=== PATIENT | male | born 1950 | race Caucasian/White ===

== ENCOUNTER 2019-03-14 10:35 | Inpatient (IN) | payer OTHER, MEDICAID ==
[~2019-03-14] VITALS: Ht 167.6 cm; Wt 75.7 kg
--- NOTE | 2019-03-14 10:50 | NUR ---
PT TAKEN TO BED 10.
--- NOTE | 2019-03-14 11:20 | NUR ---
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 Respirations are even, and mildly labored. Respirations at 36. O2 saturation at 96% on RA. Breath sounds are bilateral coarse. Per alissa pt was admitted to [place] x3 weeks for aspiration pneumonia. D/Cd 02/21/19. On Monday night pt had emesis episode on Monday when difficulty breathing seemed to worsen. ERMD made aware of pt status. Allergies: Salicylates, NsSAIDS, Sulfa, Aspirin, Morphine Med hx: cholecystitis, cholescystectomy, osteoporosis, osteoarthritis, spatic quad, bladder retention, and depression.
[2019-03-14 11:44] VITALS: BP 134/67
[2019-03-14] MEDS ORDERED: MEROPENEM 1,000 MG in NACL 0.9% 100 ML IV ONE (12:05)
[2019-03-14] MEDS ORDERED: NACL 0.9% 2,000 ML IV ONE (12:05)
[2019-03-14] MEDS ORDERED: VANCOMYCIN 1,000 MG in DEXTROSE 5% 250 ML IV ONE (12:05)
--- NOTE | 2019-03-14 12:12 | NUR ---
measurement and sensing technician at bedside.
--- NOTE | 2019-03-14 12:50 | NUR ---
Pt awake and alert. Pt placed on 3L of O2, per MD request.
[2019-03-14] MEDS ORDERED: VANCOMYCIN 1,000 MG VIAL ONE (12:51)
[2019-03-14] MEDS ORDERED: MEROPENEM 1,000 MG VIAL IV ONE (12:52)
[2019-03-14 13:17] LABS: BASOPHILS % (AUTO) 0.3 % (0.0-2.0); EOSINOPHILS % (AUTO) 0.4 % (0.0-4.0); HEMATOCRIT 39.6 % (36-52); HEMOGLOBIN 13.1 g/dL (12.0-18.0); LYMPHOCYTES # (AUTO) 0.9 K/uL (2.0-11.5); LYMPHOCYTES % (AUTO) 11.8 % (20.5-51.1); MEAN CORPUSCULAR HEMOGLOBIN 32 pg (27-31); MEAN CORPUSCULAR HGB CONC 33 g/dL (33-37); MEAN CORPUSCULAR VOLUME 96.1 fL (80-94); MONOCYTES # (AUTO) 0.8 K/uL (0.8-1.0); MONOCYTES % (AUTO) 10.1 % (1.7-9.3); NEUTROPHILS # (AUTO) 6.1 K/uL (1.8-7.7); NEUTROPHILS % (AUTO) 77.4 % (42.2-75.2); PLATELET COUNT (AUTO) 240 K/uL (140-450); RED BLOOD CELL COUNT(AUTO) 4.12 MIL/uL (4.20-6.10); WHITE BLOOD COUNT (AUTO) 7.9 K/uL (4.8-10.8)
[2019-03-14 13:28] LABS: ANION GAP 11.4 (8-16); CARBON DIOXIDE 33.1 mmol/L (21-32); CREATININE 0.6 mg/dL (0.7-1.3); POTASSIUM 4.5 mmol/L (3.5-5.1)
[2019-03-14 13:33] LABS: ALBUMIN 2.1 g/dL (3.4-5.0); TOTAL BILIRUBIN 0.4 mg/dL (0.0-1.0)
[2019-03-14] MEDS ORDERED: LACT10SO93 PO (13:51)
[2019-03-14] MEDS ORDERED: TRAM50TA1 GT (13:51)
[2019-03-14] MEDS ORDERED: [UNRECOGNIZED DRUG - CODE] GT (13:51)
[2019-03-14] MEDS ORDERED: HAL5 GT (13:51)
[2019-03-14] MEDS ORDERED: ACET-503 GT (13:51)
[2019-03-14] MEDS ORDERED: BENZ-203 GT (13:51)
[2019-03-14] MEDS ORDERED: MIRABULK GT (13:51)
[2019-03-14] MEDS ORDERED: BISA-246 RC (13:51)
[2019-03-14] MEDS ORDERED: PRON INH (13:51)
[2019-03-14] MEDS ORDERED: DEXT118S47 GT (13:51)
[2019-03-14] MEDS ORDERED: NA P133E RC (13:51)
[2019-03-14] MEDS ORDERED: MULT9LIQ5 GT (13:51)
[2019-03-14] MEDS ORDERED: TAMS0.4C96 GT (13:51)
[2019-03-14] MEDS ORDERED: ASCO500T45 GT (13:51)
[2019-03-14] MEDS ORDERED: FAMO-90 GT (13:51)
--- NOTE | 2019-03-14 13:57 | NUR ---
[facility] in [facility] - 03/14/19 at 1358 by MONET CONTACT INFORMATION: MELE DANG)
--- NOTE | 2019-03-14 13:58 | NUR ---
CONTACT INFORMATION: MELE (RN) YINA (MEDIA PRODUCTION SUPPORT MANAGER)
[2019-03-14 14:00] VITALS: BP 120/66
--- NOTE | 2019-03-14 14:00 | NUR ---
UNABLE TO GIVE IV MEDS DUE TO IV INFILTRATION. NOTIFIED CHARGE NURSE.
--- NOTE | 2019-03-14 14:00 | NUR ---
PT CAME TO UNIT VIA [facility]. REPORT GIVEN BY ER NURSE LAXMI. PT WAS TRANSFEREE FROM [facility] TO BED. ADMISSION ASSESSMENT DONE. NOTED WITH OLD WHITE SKIN DISCOLORATION TO SACRAL AREA. SKIN INTACT. PICTURE TAKEN. CALL LIGHT IN REACH.
--- NOTE | 2019-03-14 14:11 | NUR ---
Transfer of care and report given to KATHY Michael. Transfer to 124B, Tele
--- NOTE | 2019-03-14 14:13 | NUR ---
Patient will be Admited to Tele. Will go to room 124b. Belongings list completed. Report to KATHY Michael.
[2019-03-14] MEDS ORDERED: ACETAMINOPHEN 325 MG TAB PO PRN (14:30)
[2019-03-14] MEDS ORDERED: ACETAMINOPHEN/CODEINE 300/30MG 1 TAB GT PRN (14:30)
[2019-03-14] MEDS ORDERED: ALBUTEROL 0.083% 2.5 MG/3 ML NEBU INH PRN (14:30)
[2019-03-14] MEDS ORDERED: SODIUM PHOSPHATE 118 ML ENEM RC PRN (14:30)
[2019-03-14] MEDS ORDERED: BISACODYL 10 MG SUPP RC PRN (14:30)
[2019-03-14] MEDS ORDERED: ONDANSETRON 4 MG/2 ML VIAL IVP PRN (14:30)
--- NOTE | 2019-03-14 14:30 | NUR ---
PT'S IV LINE IS INFILTRATED UNABLE YO GIVE IV MEDS. INFORMED CHARGE NURSE. CALLED DR DEJESUS TO GET A CONSENT FOR PICC LINE. PT IS RESTING BED. PT WAS GRIMACING. UNABLE TO GIVE PAIN MEDS DUE TO G TUBE PORT COMPATIBILTIY. CALLED [facility] TO GET THE ADAPTER. CALL LIGHT IN REACH.
[2019-03-14] MEDS: HYDROcodone/APAP 5/325 MG 1 TAB TAB PO PRN ×2 (15:59→20:24)
[2019-03-14 16:00] VITALS: BP 146/91
--- NOTE | 2019-03-14 19:00 | NUR ---
CALLED DR LEVY DEJESUS TO GET A CONSENT FOR PICC INSERTION. DR DEJESUS GAVE CONSENT. PER DR OLEG HERRERA WILL SIGN THE CONSENT AND DR DEJESUS WILL ALSO SIGN THE CONSENT. PT IS UNABLE TO SIGN PAPERS.CONSENT PRINTED AND IN CHART.
--- NOTE | 2019-03-14 19:30 | NUR ---
SHIFT REPORT GIVEN TO MECHANICAL DEVELOPER PROVER NURSE. IV LINE WAS REMOVED BECAUSE IV LINE WAS INFILTRATED. PICC CONSENT GIVEN BY DR DEJESUS. ENDORSED TO MECHANICAL DEVELOPER PROVER NURSE. PT IS IN STABLE CONDITION. NO DISTRESS NOTED. CALL LIGHT IN REACH.
--- NOTE | 2019-03-14 19:31 | NUR ---
RECEIVED BEDSIDE REPORT FROM DAY SHIFT NURSE FOR CONTINUITY OF CARE. PT AWAKE AND RESTING ON BED AT THIS TIME. PT AAOX1 RESPIRATION EVEN AND UNLABORED ON 3LPM O2 VIA NC. NO SIGNS OF DISTRESS NOTED. NO IV SITE NOTED. PICC LINE ORDERED D/T HARD TO START IV. SKIN WARM AND DRY TO TOUCH. REDNESS ON SACRAL AREA. PT BED BOUND. IMPAIR TO AMBULATE. PT IS INCONTINENT. G-TUBE SITE NOTED BUT NO DIET NOTED, WILL CALL . SAFETY MEASURES IN PLACE. BED IN LOW POSITION AND CALL LIGHT WITHIN REACH.
[2019-03-14 20:00] VITALS: BP 141/86
[2019-03-14] MEDS: BENZTROPINE 1 MG TAB GT SCH (20:24)
[2019-03-14] MEDS: HALOPERIDOL 5 MG TAB GT SCH (20:24)
--- NOTE | 2019-03-14 20:24 | NUR ---
GIVEN COGENTIN AND HALDOL MD ORDERED. NOT ADMINISTER MERREM D/T NO IV ASSESS. ATTEMPTED 2 TIMES OF IV START, NOT SUCCESSFUL.
[2019-03-14] MEDS: MEROPENEM 1,000 MG in NACL 0.9% 100 ML IV SCH (21:00)
--- NOTE | 2019-03-14 21:00 | NUR ---
CALLED DR. DEJESUS AND RECEIVED TUBE FEEDING ORDER, JEVITY 1.2 @ 50MLS, BUT PT'S GTUBE LINE DOES NOT FIT TO MH GTUBE FEEDING TUBE. CALLED [facility] FOR ADAPTOR 2TIMES, NO ANSWERING. ACCORDING TO CHARGE NURSE, ERNESTINA, THEY WILL BRING IT TO THE FACILITY IN THE MORNING AND WE SHOULD CALL WHEN THEY OPEN.
--- NOTE | 2019-03-14 22:22 | NUR ---
DR. HERRERA CAME AND AWARE PT DOES NOT HAVE IV ASSESS. ORDERED INFLUENZA A AND B. COLLECTED AND SENT TO LAB.
[2019-03-15] VITALS: BP 121/81
[2019-03-15] MEDS: MEROPENEM 1,000 MG in NACL 0.9% 100 ML IV SCH ×3 (01:20→23:49)
--- NOTE | 2019-03-15 01:20 | NUR ---
IV STARTED BY DONTAE, ON L HAND, 24G, GOOD BLOOD RETURN NOTED. GIVEN 03/14/192099 SCHEDULED MERREM LATE. PT TOLERATED WELL.
[2019-03-15] MEDS: IPRATROPIUM 0.02% 0.5 MG/2.5 ML NEBU INH SCH ×4 (02:10→19:56)
[2019-03-15] MEDS: HYDROcodone/APAP 5/325 MG 1 TAB TAB PO PRN ×4 (03:02→22:15)
--- NOTE | 2019-03-15 03:02 | NUR ---
PT SCREAMING. FLACC 1 NOTED. GIVEN NORCO MD ORDERED. PT TOLERATED WELL.
[2019-03-15 04:00] VITALS: BP 113/68
--- NOTE | 2019-03-15 04:25 | NUR ---
PT SLEEPING IN BED COMFORTABLY. NO ACUTE DISTRESS NOTED.
--- NOTE | 2019-03-15 06:00 | NUR ---
CALLED [facility] FOR SUKHDEEPUBE ADAPTOR. NO ANSWER.
--- NOTE | 2019-03-15 06:05 | NUR ---
CALLED ALVARO, [facility] FOR edPULSEUBE ADAPTOR. NO ANSWER.
[2019-03-15 06:12] LABS: BASOPHILS % (AUTO) 0.3 % (0.0-2.0); EOSINOPHILS % (AUTO) 0.5 % (0.0-4.0); HEMATOCRIT 34.9 % (36-52); HEMOGLOBIN 11.4 g/dL (12.0-18.0); LYMPHOCYTES % (AUTO) 13.2 % (20.5-51.1); MEAN CORPUSCULAR HEMOGLOBIN 32 pg (27-31); MEAN CORPUSCULAR HGB CONC 33 g/dL (33-37); MEAN CORPUSCULAR VOLUME 96.6 fL (80-94); MONOCYTES # (AUTO) 0.7 K/uL (0.8-1.0); MONOCYTES % (AUTO) 10.1 % (1.7-9.3); NEUTROPHILS # (AUTO) 5.5 K/uL (1.8-7.7); NEUTROPHILS % (AUTO) 75.9 % (42.2-75.2); PLATELET COUNT (AUTO) 234 K/uL (140-450); RED BLOOD CELL COUNT(AUTO) 3.61 MIL/uL (4.20-6.10); RED CELL DISTRIBUTION WIDTH 14.2 % (11.6-13.7); WHITE BLOOD COUNT (AUTO) 7.2 K/uL (4.8-10.8)
[2019-03-15 06:20] LABS: ANION GAP 10.4 (8-16); CARBON DIOXIDE 32.6 mmol/L (21-32); CREATININE 0.6 mg/dL (0.7-1.3)
--- NOTE | 2019-03-15 06:46 | NUR ---
PT IN STABLE CONDITION, WILL ENDORSE PT TO DAY SHIFT NURSE.
--- NOTE | 2019-03-15 07:15 | NUR ---
RECEIVED THE REPORT AT BEDSIDE FROM PROGRAM DIRECTOR/MORNING SHOW HOST NURSE. PT IS AWAKE AND ORIENTED X 2. ON 3L O2 VIA NC. ON TELE MONITORING. PT HAS A GTUBE, INTACT. IV ON L HAND 24G, TKO. SIN INTACT. UNABLE TO GIVE FEEDING D/T THE ADAPTOR NOT AVAILABLE. BUE AND CELIA IS CONTRACTED. WILL CONTINUE TO MONITOR PT.
[2019-03-15 08:00] VITALS: BP 140/75
--- NOTE | 2019-03-15 08:44 | NUR ---
PATIENT HAS BEEN SCREENED AND CATEGORIZED HIGH NUTRITION RISK. PATIENT WILL BE SEEN WITHIN 1-2 DAYS OF ADMISSION. 03/15/19-03/16/[address]
[2019-03-15] MEDS ORDERED: VITAMIN D3 GT SCH (09:00)
[2019-03-15] MEDS ORDERED: MINERALS GT SCH (09:00)
[2019-03-15] MEDS ORDERED: LACTULOSE PO SCH (09:00)
[2019-03-15] MEDS ORDERED: FERROUS FUM GT SCH (09:00)
[2019-03-15] MEDS ORDERED: CALCIUM CARBONATE GT SCH (09:00)
[2019-03-15] MEDS ORDERED: MULTIVIT GT SCH (09:00)
[2019-03-15] MEDS: LACTULOSE 20 GM/30 ML UDC GT SCH (09:18)
[2019-03-15] MEDS: TAMSULOSIN 0.4 MG CAP GT SCH (09:18)
[2019-03-15] MEDS: OSELTAMIVIR PHOSPHATE 75 MG CAP PO SCH ×2 (09:19→22:15)
[2019-03-15] MEDS: FAMOTIDINE 20 MG TAB GT SCH (09:19)
[2019-03-15] MEDS: MULTIVITAMIN/MINERALS 1 TAB GT SCH (09:19)
[2019-03-15] MEDS: CALCIUM CARB/VIT-D 500 MG/200 IU 1 TAB GT SCH (09:19)
[2019-03-15] MEDS: HALOPERIDOL 5 MG TAB GT SCH ×2 (09:19→22:15)
[2019-03-15] MEDS: BENZTROPINE 1 MG TAB GT SCH ×2 (09:26→22:15)
[2019-03-15] MEDS: ASCORBIC ACID 500 MG/5 ML ORASYR GT SCH (09:26)
--- NOTE | 2019-03-15 09:50 | NUR ---
DR DEJESUS IS HERE. SIGNED THE PICC LINE CONSENT. ADMINISTERED ALL MORNING MEDS VIA [email or web address]. PT TOLERATED WELL. STILL UNABLE TO START ON FEEDING D/T NOT HAVING THE ADAPTOR. WILL CALL NURSE THIS MORNING AND ASK THEM TO BRING IN AN ADAPTER FOR THE FEEDING.
[2019-03-15 12:00] VITALS: BP 93/60
--- NOTE | 2019-03-15 13:07 | NUR ---
DC PLANNIN YRS OLD MALE PT WAS ADMITTED FROM [facility] WITH A DX OF PNEUMONIA . PT HAS A HX OF SEIZURE, CEREBRAL PALSY OSTEOARTHRITIS,DYSPHAGIA . CXR SHOWED PLEURAL EFFUSION AND PNA ,CT CHEST SHOWS PARTIALLY LOCULATED QUESTIONABLE FLUID INVOLVING LARGE PORTION OF RIGHT HEMITHORAX ,G-TUBE IN PLACE. SEEN BY DR JANG ORDERED BLOOD AND SPUTUM CULTURE PENDING , STARTED MEROPENEM VANCOMYCIN IV AND TAMIFLU . ABD ULTRASOUND PENDING, CONSULTED WITH DR DARCI JAMES FOR TRANSAMINITIS ,PULMO DR QUEZADA FOR PLEURAL EFFUSION AND DR PIERRE SURGEON FOR PLEURAL EFFUSION/ CHEST TUBE. DC PLAN TO GO TO [facility] WHEN STABLE. Addendum: 03/17/19 at 1636 by Rhea Arellano CHEST CT DONE TODAY SHOWED LARGE MULTILOCULATED RIGHT PLEURAL EFFUSION, SIMILAR TO PRIOR EXAMINATION. SURGICAL CONSULT, ID, PULMO AND GI CONSULTS IN PLACE. DC PLAN BACK TO [facility] ONCE STABLE. Addendum: 03/18/19 at 1506 by Natalya Pettit DC PLANNING: CONTINUE CURRENT ABX COVERAGE FOR NOW CONSIDER PLEURAL TAP TO EVALUATE POSSIBILITY OF EMPYEMA CT CHEST AND CXRAY REVIEWED BY DR GRIER RECOMMENDED IR GUIDED THORACENTESIS AND POSSIBLE CHEST TUBE PLACEMENT . DC PLAN TO GO BACK TO [facility] WHEN STABLE. CM TO FOLLOW Addendum: 03/19/19 at 1327 by Natalya Pettit CM DC PLANNING SEEN BY PULMO DR GRIER , HIGHLY CONCERNING FOR EMPYEMA PLAN FOR IR GUIDED CHEST TUBE PLACEMENT, CONTINUE ANTIBIOTICS PER ID . CHEST TUBE PLACEMENT SCHEDULED FOR TOMORROW. CM TO FOLLOW Addendum: 03/20/19 at 1333 by Natalya Pettit DC PLANNING S/P CHEST TUBE PLACEMENT ,AWAITING ADAPTER TO CONNECT CHEST TUBE TO DRAINAGE ,REPEAT CHEST X-RAY TOMORROW CONTINUE ABX PER ID. DC PLAN FOR SNF VS [facility] CM TO FOLLOW Addendum: 03/21/19 at 1433 by Natalya Pettit CM DC PLANNING CALLED KULDEEP LAKHANI WITH [employer] AND FAXED ALL THE PAPERWORK AND [facility] WILL COME TO EVALUATE PATIENT. CM TO FOLLOW
--- NOTE | 2019-03-15 14:20 | NUR ---
DR BEJARANO IS HERE TO CONSULT ON PT. WAITING ON [facility] US. REPORT NOT AVAILABLE YET.
--- NOTE | 2019-03-15 15:15 | NUR ---
SCREEN FOR LOW JIMENEZ SCALE AT RISK, CONTINUE TO FOLLOW PRESSURE ULCER PREVENTION INTERVENTIONS. -TURN AND REPOSITION PATIENT Q 2H -ASSESS AND MONITOR SKIN CONDITION DURING POSITION CHANGE -OFFLOAD BILATERAL HEELS BY PLACING PILLOWS UNDER CALVES AT ALL TIMES, UNLESS OTHERWISE CONTRAINDICATED -PRESSURE REDISTRIBUTION BY PLACING PILLOWS AND OFFLOADING SACRALCOCCYX -KEEP SKIN CLEAN AND DRY AT ALL TIMES.
--- NOTE | 2019-03-15 15:23 | NUR ---
BUCKLE STRAP DRUM OPERATOR assessment/discharge plan Name: Carlos Birch Home Relationship: employee benefits manager of [facility] Pre-Admission Living Arrangements: Lives with Other Other: [facility] ([facility]) Current Name/Tel: wheelchair Healthcare Decision Maker: Other Other: [facility] Tentative Discharge Plan Summary: Patient is a 68 year old male admitted for pneumonia. I called and spoke with employee benefits manager Carlos Birch of [facility], I obtained the following information from him. Patient does not have any family. Carlos stated he will call me back and provide me with case management specialist at [facility] contact information. Patient is not conserved. Patient's pcp is Abel Nickerson and follows up with patient once a month or as needed. Carlos will be the one arranging transportation for patient upon discharge. Size Maker and/or Glass Calibrator will follow up as needed. Signature: GINA Ritter Date: Mar 15, 2019
--- NOTE | 2019-03-15 15:41 | NUR ---
03/15/19 INITIAL ASSESSMENT COMPLETED PLEASE REFER TO NUTRITION ASSESSMENT UNDER CARE ACTIVITY FOR ESTIMATED NUTRITIONAL NEEDS. 1. CONTINUE JEVITY 1.2 @ 50ML/HR -THIS WILL PROVIDE 1200 ML OF VOLUME, 1440 KCALS, AND 66.6 GM OF PROTEIN WHICH MEETS >75% OF ESTIMATED NUTRIENT NEEDS 2. RECOMMEND FREE WATER FLUSH OF 100ML Q4H 3. RD TO FOLLOW-UP 2-3 DAYS, HIGH RISK FRANCHESKA JHA RD
[2019-03-15 16:00] VITALS: BP 109/76
--- NOTE | 2019-03-15 19:17 | NUR ---
GAVE REPORT TO THE INSULATION BOARD CALENDER OPERATOR NURSE. PT MAY HAVE HIS PICC LINE INSERTED TONIGHT. SHUT OFF THE FEEDING AFTER 3 HRS. TOTAL 150ML. CONSENT IN THE CHART. ALL ORDERS REVIEWED AND COMPLETED.
--- NOTE | 2019-03-15 19:18 | NUR ---
RECEIVED REPORT FROM AM SHIFT NURSE. PATIENT ALERT AND ORIENTED X1. NO APPARENT DISTRESS NOTED. VISIBLE CHEST RISE AND FALL NOTED. BED ON LOW POSITION. WITH PERIPHERAL IV ON LEFT HAND 24 GAUGE ON TKO. WILL CONTINUE TO MONITOR.
[2019-03-15 20:00] VITALS: BP 122/49
--- NOTE | 2019-03-15 21:15 | NUR ---
PATIENT AWAKE IN BED. NO APPARENT DISTRESS NOTED. BED ON LOW POSITION. BED ALARM ON. WILL CONTINUE TO MONITOR.
--- NOTE | 2019-03-15 21:45 | NUR ---
PICC LINE INSERTED BY PICC LINE NURSE ALEX. MEJIA FOR USE.
--- NOTE | 2019-03-15 23:10 | NUR ---
PATIENT ASLEEP IN BED. NO APPARENT DISTRESS NOTED. SAFETY ENSURED. WILL CONTINUE TO MONITOR.
[2019-03-16] VITALS: BP 128/72
--- NOTE | 2019-03-16 01:05 | NUR ---
PATIENT ASLEEP IN BED. NO APPARENT DISTRESS NOTED. VISIBLE CHEST RISE AND FALL NOTED. WILL CONTINUE TO MONITOR.
[2019-03-16] MEDS: IPRATROPIUM 0.02% 0.5 MG/2.5 ML NEBU INH SCH ×4 (01:16→19:54)
[2019-03-16] MEDS: HYDROcodone/APAP 5/325 MG 1 TAB TAB PO PRN ×3 (02:49→16:56)
--- NOTE | 2019-03-16 03:00 | NUR ---
PATIENT AWAKE IN BED. NO APPARENT DISTRESS NOTED. VISIBLE CHEST RISE AND FALL NOTED. WILL CONTINUE TO MONITOR.
[2019-03-16 04:00] VITALS: BP 122/65
--- NOTE | 2019-03-16 04:44 | NUR ---
PATIENT ASLEEP IN BED. NO APPARENT DISTRESS NOTED. VISIBLE CHEST RISE AND FALL NOTED. WILL CONTINUE TO MONITOR.
--- NOTE | 2019-03-16 06:22 | NUR ---
CHANGED PADS. TURNED AND REPOSITIONED PATIENT FOR COMFORT. NO APPARENT DISTRESS NOTED. WILL CONTINUE TO MONITOR.
--- NOTE | 2019-03-16 07:10 | NUR ---
ENDORSED TO AM SHIFT NURSE FOR CONTINUITY OF CARE.
--- NOTE | 2019-03-16 07:11 | NUR ---
RECEIVED REPORT FROM PRESS WORKER HELPER NURSE AT BEDSIDE FOR CONTINUITY OF CARE. PATIENT ALERT AND ORIENTED X1. NO APPARENT DISTRESS NOTED. ON 3L O2 VIA NC. IV ON LEFT HAND 24 SL AND MAKSIM DOUBLE LUMEN PICC LINE AT TKO. SAFETY AND SEIZURE PRECAUTIONS IN PLACE, CALL LIGHT WITHIN REACH, WILL CONTINUE TO MONITOR PATIENT. BED ON LOW POSITION.
[2019-03-16 07:54] LABS: ALBUMIN 2.1 g/dL (3.4-5.0); ANION GAP 7.5 (8-16); CARBON DIOXIDE 34.5 mmol/L (21-32); CREATININE 0.7 mg/dL (0.7-1.3); TOTAL BILIRUBIN 0.3 mg/dL (0.0-1.0)
[2019-03-16 08:00] VITALS: BP 110/50
[2019-03-16 08:08] LABS: BASOPHILS % (AUTO) 0.3 % (0.0-2.0); EOSINOPHILS # (AUTO) 0.2 K/uL (0-0.4); EOSINOPHILS % (AUTO) 2.3 % (0.0-4.0); HEMATOCRIT 38.9 % (36-52); HEMOGLOBIN 12.8 g/dL (12.0-18.0); LYMPHOCYTES # (AUTO) 0.9 K/uL (2.0-11.5); MEAN CORPUSCULAR HEMOGLOBIN 32 pg (27-31); MEAN CORPUSCULAR HGB CONC 33 g/dL (33-37); MEAN CORPUSCULAR VOLUME 96.8 fL (80-94); MONOCYTES # (AUTO) 0.6 K/uL (0.8-1.0); MONOCYTES % (AUTO) 7.8 % (1.7-9.3); NEUTROPHILS # (AUTO) 5.8 K/uL (1.8-7.7); NEUTROPHILS % (AUTO) 77.6 % (42.2-75.2); PLATELET COUNT (AUTO) 284 K/uL (140-450); RED BLOOD CELL COUNT(AUTO) 4.02 MIL/uL (4.20-6.10); RED CELL DISTRIBUTION WIDTH 13.8 % (11.6-13.7); WHITE BLOOD COUNT (AUTO) 7.4 K/uL (4.8-10.8)
[2019-03-16] MEDS ORDERED: CRUSHER, PILL MC ONE (08:57)
[2019-03-16] MEDS: TAMSULOSIN 0.4 MG CAP GT SCH (09:04)
[2019-03-16] MEDS: FAMOTIDINE 20 MG TAB GT SCH (09:04)
[2019-03-16] MEDS: POLYETHYLENE GLYCOL 17 GM/PKT GT SCH (09:04)
[2019-03-16] MEDS: ASCORBIC ACID 500 MG/5 ML ORASYR GT SCH (09:04)
[2019-03-16] MEDS: LACTULOSE 20 GM/30 ML UDC GT SCH (09:04)
[2019-03-16] MEDS: HALOPERIDOL 5 MG TAB GT SCH ×2 (09:04→20:37)
[2019-03-16] MEDS: MULTIVITAMIN/MINERALS 1 TAB GT SCH (09:05)
[2019-03-16] MEDS: OSELTAMIVIR PHOSPHATE 75 MG CAP PO SCH ×2 (09:05→20:37)
[2019-03-16] MEDS: BENZTROPINE 1 MG TAB GT SCH ×2 (09:05→20:37)
[2019-03-16] MEDS: CALCIUM CARB/VIT-D 500 MG/200 IU 1 TAB GT SCH (09:23)
[2019-03-16] MEDS: MEROPENEM 1,000 MG in NACL 0.9% 100 ML IV SCH ×2 (10:57→20:38)
[2019-03-16 12:00] VITALS: BP 99/51
--- NOTE | 2019-03-16 12:00 | NUR ---
NEW BAG OF TUBE FEEDING STARTED. PATIENT TOLERATING IT. GTUBE AUSCULTATED FOR PLACEMENT AND 0 ML OF RESIDUAL NOTED. WILL CONTINUE TO MONITOR PATIENT.
[2019-03-16 12:21] LABS: ALBUMIN 2.2 g/dL (3.4-5.0); BILIRUBIN,DIRECT 0.1 mg/dL (0.0-0.3); TOTAL BILIRUBIN 0.3 mg/dL (0.0-1.0)
[2019-03-16 16:00] VITALS: BP 115/60
--- NOTE | 2019-03-16 16:56 | NUR ---
PATIENT STILL MOANING IN PAIN. PATIENT VOIDED AND HAD BM. PATIENT CLEANED AND REPOSITIONED, STILL MOANING IN PAIN. PRN PAIN MEDICATION GIVEN. PATIENT TOLERATING IT. WILL CONTINUE TO MONITOR PATIENT.
[2019-03-16] MEDS: ALBUTEROL 0.083% 2.5 MG/3 ML NEBU INH PRN (17:41)
--- NOTE | 2019-03-16 17:41 | NUR ---
REPEAT SPUTUM CULTURE COLLECTED USING STERILE TECHNIQUE APPPLIED [place] LUBRICANT TO THE DISTAL END OF A 14FR SUCTION CATHETER INSERTED INTO RIGHT AND LEFT NASAL CAVITY COLLETCD LARGE THICK YELLOW SECRETIONS TOLERATED PROCEDURE WELL WITHOUT INCIDENT PRE-MID AND POST OXYGENATION PROVIDED HHN PRN THERAPY PROVIDE FOR THE PREVENTION OF BRONCHOSPASM AND INCREASED SOB
[2019-03-16] MEDS: traMADol 50 MG TAB GT PRN (18:18)
--- NOTE | 2019-03-16 18:18 | NUR ---
PATIENT STILL MOANING IN PAIN. PATIENT REPOSITIONED, STILL MOANING IN PAIN. PRN PAIN MEDICATION GIVEN. PATIENT TOLERATING IT. WILL CONTINUE TO MONITOR PATIENT.
--- NOTE | 2019-03-16 18:20 | NUR ---
DOCTOR URBANO IN TO SEE PATIENT. HE IS AGREABLE WITH US GUIDED THORACENTESIS FOR PATIENT TOMORROW. WILL ENDORSE.
--- NOTE | 2019-03-16 19:26 | NUR ---
REPORT GIVEN TO LEAD MINER NURSE AT BEDSIDE FOR CONTINUITY OF CARE. PATIENT STILL MOANING IN PAIN.
--- NOTE | 2019-03-16 19:28 | NUR ---
RECEIVED REPORT FROM AM SHIFT NURSE, WIN AT BEDSIDE FOR CONTINUITY OF CARE. PATIENT ALERT AND ORIENTED X1 PT MOANING. REPLACED THE 3L O2 VIA NC, REATTACHED JANEL FIXED IT. IV ON LEFT HAND 24 SL , WITH IV ON AND MAKSIM DOUBLE LUMEN PICC LINE AT TKO. SAFETY AND SEIZURE PRECAUTIONS IN PLACE, CALL LIGHT WITHIN REACH, WILL CONTINUE TO MONITOR PATIENT. BED ON LOW POSITION.
[2019-03-16 19:58] VITALS: BP 134/73
--- NOTE | 2019-03-16 20:00 | NUR ---
RECEIVED PT ON 2L NC WITH AN SP02 OF 94% AND COARSE BREATH SOUNDS. NO RESPIRATORY DISTRESS NOTED AT THIS TIME. HHN TX GIVEN ORDERED WITH NO ADVERSE REACTION. WILL CONTINUE TO MONITOR PT.
--- NOTE | 2019-03-16 23:55 | NUR ---
PATIENT TURNED AND CLEANED, PLACED PILLOWS TO OFFLOAD PRESSURE AREAS
[2019-03-17] VITALS: BP 126/63
[2019-03-17] MEDS: HYDROcodone/APAP 5/325 MG 1 TAB TAB PO PRN ×2 (01:12→21:09)
--- NOTE | 2019-03-17 01:12 | NUR ---
PT MOANING, WILL GIVE PT PAINMEDS FOR CONTINUITY OF CARE
[2019-03-17] MEDS: IPRATROPIUM 0.02% 0.5 MG/2.5 ML NEBU INH SCH ×4 (01:14→19:53)
--- NOTE | 2019-03-17 01:23 | NUR ---
PT CLEANED AND TURNED; OFFLOADING DONE
--- NOTE | 2019-03-17 02:12 | NUR ---
PAIN REASSESSMENT DONE; WILL CONTUNUE TO MONITOR
--- NOTE | 2019-03-17 02:56 | NUR ---
TURNED AND CLEANED PT AND OFFLOADED PRESSURE AREAS
--- NOTE | 2019-03-17 03:30 | NUR ---
ENDORSED FOR USD GUIDED CHEST/MEDIASTINUM. AND USD THORACENTESIS TODAY
[2019-03-17 04:00] VITALS: BP 98/53
[2019-03-17 05:50] LABS: BASOPHILS % (AUTO) 0.3 % (0.0-2.0); EOSINOPHILS # (AUTO) 0.4 K/uL (0-0.4); EOSINOPHILS % (AUTO) 4.7 % (0.0-4.0); HEMATOCRIT 32.8 % (36-52); HEMOGLOBIN 10.6 g/dL (12.0-18.0); LYMPHOCYTES # (AUTO) 0.9 K/uL (2.0-11.5); LYMPHOCYTES % (AUTO) 11.5 % (20.5-51.1); MEAN CORPUSCULAR HEMOGLOBIN 31 pg (27-31); MEAN CORPUSCULAR HGB CONC 32 g/dL (33-37); MEAN CORPUSCULAR VOLUME 96.9 fL (80-94); MONOCYTES # (AUTO) 0.7 K/uL (0.8-1.0); MONOCYTES % (AUTO) 8.8 % (1.7-9.3); NEUTROPHILS # (AUTO) 5.7 K/uL (1.8-7.7); NEUTROPHILS % (AUTO) 74.7 % (42.2-75.2); PLATELET COUNT (AUTO) 280 K/uL (140-450); RED BLOOD CELL COUNT(AUTO) 3.39 MIL/uL (4.20-6.10); RED CELL DISTRIBUTION WIDTH 14.5 % (11.6-13.7); WHITE BLOOD COUNT (AUTO) 7.7 K/uL (4.8-10.8)
[2019-03-17 06:01] LABS: ANION GAP 3.7 (8-16); CARBON DIOXIDE 35.5 mmol/L (21-32); CREATININE 0.6 mg/dL (0.7-1.3); POTASSIUM 4.2 mmol/L (3.5-5.1)
--- NOTE | 2019-03-17 06:30 | NUR ---
PT ASLEEP, CAN BE AROUSED BY TACTILE STIMULI. PT WAS AWAKE EARLIER. PT IN STABLE CONDITION. WILL ENDORSE TO NEXT SHIFT USD GUIDED THORACENTESIS TO BE DONE TODAY. PLS ORDER PLEURAL EFFUSION LIQUID SAMPLE (ASK DR. BECERRA WE NEEDS TO BE DONE FOR THE SAMPLE)
--- NOTE | 2019-03-17 07:15 | NUR ---
RECEIVED BEDSIDE REPORT FROM PM RN PT AWAKE IN BED PT APPEARS STABLE AND IN NO APPARENT DISTRESS. ALL SAFETY MEASURES ARE IN PLACE WILL CONTINUE TO MONITOR.
--- NOTE | 2019-03-17 07:24 | NUR ---
PT ASLEEP, PT ABLE TO BE AROUSED BY TACTILE STIMULI. WILL ENDORSE TO NEXT SHIFT FOR CONTINUITY OF CARE. Addendum: 03/18/19 at 0737 by Christy Zaman RN GISEL
--- NOTE | 2019-03-17 07:39 | NUR ---
CALLED THE RN ALVARO BUT HER MAILBOX IS FULL; ULTRASOUND GUIDED CONSENT ATTACHED TO CHART, AWAITING FOR DECISION OF MARYA.
[2019-03-17] MEDS: ALBUTEROL 0.083% 2.5 MG/3 ML NEBU INH PRN (07:51)
[2019-03-17 08:00] VITALS: BP 142/74
[2019-03-17] MEDS: ASCORBIC ACID 500 MG/5 ML ORASYR GT SCH (09:18)
[2019-03-17] MEDS: MEROPENEM 1,000 MG in NACL 0.9% 100 ML IV SCH ×2 (09:19→21:08)
[2019-03-17] MEDS: LACTULOSE 20 GM/30 ML UDC GT SCH (09:19)
[2019-03-17] MEDS: CALCIUM CARB/VIT-D 500 MG/200 IU 1 TAB GT SCH (09:19)
[2019-03-17] MEDS: HALOPERIDOL 5 MG TAB GT SCH ×2 (09:20→21:08)
[2019-03-17] MEDS: BENZTROPINE 1 MG TAB GT SCH ×2 (09:20→21:09)
[2019-03-17] MEDS: MULTIVITAMIN/MINERALS 1 TAB GT SCH (09:20)
[2019-03-17] MEDS: OSELTAMIVIR PHOSPHATE 75 MG CAP PO SCH ×2 (09:20→21:09)
[2019-03-17] MEDS: FAMOTIDINE 20 MG TAB GT SCH (09:20)
[2019-03-17] MEDS: TAMSULOSIN 0.4 MG CAP GT SCH (09:20)
--- NOTE | 2019-03-17 09:22 | NUR ---
FREQUENT ROUNDING ON PT PT APPEARS STABLE AND IN NO APPARENT DISTRESS. ALL SAFETY MEASURES ARE IN PLACE WILL CONTINUE TO MONITOR.
[2019-03-17] MEDS: LORazepam 2 MG/ML VIAL IVP PRN ×2 (11:02→21:56)
--- NOTE | 2019-03-17 11:05 | NUR ---
ATIVAN ADMINISTERED VIA IV PUSH PT APPEARS VERY AGITATED AND MOANING. PT ON TELE MONITORING. RIGHT UPPER ARM PICC INFUSING NO SIGNS OF INFILTRATION OR INFLAMMATION. PT RECEIVING 02 VIA NASAL CANULA AT 3L. GTUBE INFUSING HEAD OF BED ELEVATED ABOVE 30 DEGREES. ALL SAFETY MEASURES ARE IN PLACE
--- NOTE | 2019-03-17 11:34 | NUR ---
FREQUENT ROUNDING ON PT PT APPEARS STABLE AND IN NO APPARENT DISTRESS. ALL SAFETY MEASURES ARE IN PLACE WILL CONTINUE TO MONITOR.
[2019-03-17 12:05] VITALS: BP 112/57
--- NOTE | 2019-03-17 12:30 | NUR ---
PT TAKEN OFF THE UNIT VIA GURNEY. TO RADIOLOGY FOR CT SCAN. ALL SAFETY MEASURES ARE IN PLACE WILL CONTINUE TO MONITOR.
--- NOTE | 2019-03-17 12:54 | NUR ---
PT RETURNED BACK TO UNIT. PT AWAKE PT MONITORING ON . PT HEAD OF THE BED ELEVATE ABOVE 30 DEGREES SEIZURE PRECAUTIONS IN PLACE. ALL SAFETY MEASURES ARE IN PLACE PT IS ON 02 VIA NASAL CANULA 3L WILL CONTINUE TO MONITOR.
--- NOTE | 2019-03-17 13:46 | NUR ---
FREQUENT ROUNDING ON PT PT APPEARS STABLE AND IN NO APPARENT DISTRESS. ALL SAFETY MEASURES ARE IN PLACE WILL CONTINUE TO MONITOR. ALL SAFETY MEASURES ARE IN PLACE PT IS STILL ON TELE MONITORING
--- NOTE | 2019-03-17 15:34 | NUR ---
FREQUENT ROUNDING ON PT PT APPEARS STABLE AND IN NO APPARENT DISTRESS. ALL SAFETY MEASURES ARE IN PLACE WILL CONTINUE TO MONITOR
[2019-03-17 16:39] VITALS: BP 117/62
--- NOTE | 2019-03-17 19:23 | NUR ---
ENDORSED PT TO PM RN PT ON TELE MONITORING. PT HAS RIGHT UPPER ARM PICC IN PLACE PT HAS 02 VIA NASAL CANULA. ALL SAFETY MEASURES ARE IN PLACE GTUBE INFUSING HEAD OF BED ELEVATED ABOVE 30 DEGREES. SEIZURE PRECAUTIONS ARE IN PLACE/
--- NOTE | 2019-03-17 19:24 | NUR ---
RECEIVED REPORT FROM AM SHIFT NURSEDAVIDE AT BEDSIDE FOR CONTINUITY OF CARE. PATIENT ALERT AND ORIENTED X1 PT MOANING. WITH 3L O2 VIA NC, IV ON LEFT HAND 24 SL , WITH IV ON AND MAKSIM DOUBLE LUMEN PICC LINE AT TKO. SAFETY AND SEIZURE PRECAUTIONS IN PLACE, CALL LIGHT WITHIN REACH, WILL CONTINUE TO MONITOR PATIENT. BED ON LOW POSITION.
[2019-03-17 20:00] VITALS: BP 144/78
--- NOTE | 2019-03-17 20:08 | NUR ---
RECEIVED PATIENT ON NASAL CANNULA. TITRATED TO 2LPM, PULSE OX SAT 94%. SCHEDULED BREATHING TREATMENT ADMINISTERED. TOLERATED TX WELL WITHOUT ADVERSE SIDE EFFECTS. NO ACUTE RESPIRATORY DISTRESS NOTED AT THIS TIME. WILL CONTINUE TO MONITOR.
--- NOTE | 2019-03-17 21:53 | NUR ---
PT MOANING LOUDLY, AFTER GIVING PAIN MEDS, PT STILL HAS NOT STOPPED CRYING. CHARGE NURSE AWARE THAT WILL GIVE ATIVAN BP 144/78; HR 106
--- NOTE | 2019-03-17 22:00 | NUR ---
PATIENT TURNED AND CLEANED, PLACED PILLOWS TO OFFLOAD PRESSURE AREAS
[2019-03-18] VITALS: BP 133/70
[2019-03-18] MEDS: IPRATROPIUM 0.02% 0.5 MG/2.5 ML NEBU INH SCH ×4 (01:00→19:28)
--- NOTE | 2019-03-18 01:15 | NUR ---
PATIENT TURNED AND CLEANED, PLACED PILLOWS TO OFFLOAD PRESSURE AREAS
[2019-03-18 04:00] VITALS: BP 121/65
[2019-03-18] MEDS: traMADol 50 MG TAB GT PRN ×2 (04:39→20:46)
--- NOTE | 2019-03-18 06:00 | NUR ---
CHEST XRAY DONE
[2019-03-18 06:03] LABS: BASOPHILS % (AUTO) 0.3 % (0.0-2.0); EOSINOPHILS # (AUTO) 0.4 K/uL (0-0.4); EOSINOPHILS % (AUTO) 5.5 % (0.0-4.0); HEMATOCRIT 32.3 % (36-52); HEMOGLOBIN 10.6 g/dL (12.0-18.0); LYMPHOCYTES # (AUTO) 0.9 K/uL (2.0-11.5); LYMPHOCYTES % (AUTO) 12.3 % (20.5-51.1); MEAN CORPUSCULAR HEMOGLOBIN 32 pg (27-31); MEAN CORPUSCULAR HGB CONC 33 g/dL (33-37); MEAN CORPUSCULAR VOLUME 96.7 fL (80-94); MONOCYTES # (AUTO) 0.6 K/uL (0.8-1.0); MONOCYTES % (AUTO) 7.9 % (1.7-9.3); NEUTROPHILS # (AUTO) 5.4 K/uL (1.8-7.7); PLATELET COUNT (AUTO) 272 K/uL (140-450); RED BLOOD CELL COUNT(AUTO) 3.33 MIL/uL (4.20-6.10); RED CELL DISTRIBUTION WIDTH 13.9 % (11.6-13.7); WHITE BLOOD COUNT (AUTO) 7.2 K/uL (4.8-10.8)
[2019-03-18 06:46] LABS: ALBUMIN 1.7 g/dL (3.4-5.0); ANION GAP 4.1 (8-16); CARBON DIOXIDE 35.1 mmol/L (21-32); CREATININE 0.4 mg/dL (0.7-1.3); POTASSIUM 4.2 mmol/L (3.5-5.1); TOTAL BILIRUBIN 0.2 mg/dL (0.0-1.0)
--- NOTE | 2019-03-18 07:24 | NUR ---
RECEIVED REPORT FROM BATTERY CONTAINER INSPECTOR NURSE. PT IS IN BED RESTING WITH NO SIGNS OF DISTRESS NOTED. CALL LIGHT IN REACH.
--- NOTE | 2019-03-18 07:24 | NUR ---
PT ASLEEP, PT ABLE TO BE AROUSED BY TACTILE STIMULI. WILL ENDORSE TO NEXT SHIFT FOR CONTINUITY OF CARE.
[2019-03-18] MEDS: ALBUTEROL 0.083% 2.5 MG/3 ML NEBU INH PRN (07:32)
[2019-03-18 08:00] VITALS: BP 100/54
[2019-03-18] MEDS: HALOPERIDOL 5 MG TAB GT SCH ×2 (08:22→20:27)
[2019-03-18] MEDS: LACTULOSE 20 GM/30 ML UDC GT SCH (08:22)
[2019-03-18] MEDS: BENZTROPINE 1 MG TAB GT SCH ×2 (08:23→20:34)
[2019-03-18] MEDS: FAMOTIDINE 20 MG TAB GT SCH (08:23)
[2019-03-18] MEDS: MULTIVITAMIN/MINERALS 1 TAB GT SCH (08:23)
[2019-03-18] MEDS: CALCIUM CARB/VIT-D 500 MG/200 IU 1 TAB GT SCH (08:23)
[2019-03-18] MEDS: OSELTAMIVIR PHOSPHATE 75 MG CAP PO SCH ×2 (08:24→20:34)
[2019-03-18] MEDS: POLYETHYLENE GLYCOL 17 GM/PKT GT SCH (08:24)
[2019-03-18] MEDS: TAMSULOSIN 0.4 MG CAP GT SCH (08:29)
[2019-03-18] MEDS: MEROPENEM 1,000 MG in NACL 0.9% 100 ML IV SCH ×2 (08:29→20:35)
[2019-03-18] MEDS: ASCORBIC ACID 500 MG/5 ML ORASYR GT SCH (08:29)
--- NOTE | 2019-03-18 10:09 | NUR ---
PT IS NOTED WITH LOW BLOOD PRESSURE OF 91/55. PT IS OTHERWISE IS RESTING IN BED WITH NO SIGNS OF DISTRESS. OXYGEN SAT AT 96% HR AT 81. WILL CONTINUE TO MONITOR. G TUBE ASSESSMENT DONE. G TUBE RESIDUAL AT 5ML AT. CHECKED FOR PLACEMENT AND PATENCY. CALL LIGHT IN REACH.
[2019-03-18 12:00] VITALS: BP 120/66
--- NOTE | 2019-03-18 12:00 | NUR ---
PT'S BLOOD PRESSURE TAKEN ON LEFT CALF AT 120/66, O2 AT 99, HR 82. REPOSITIONED PATIENT. PT IS STILL LETHARGIC BUT RESPONSIVE TO VERBAL STIMULI. CALL LIGHT IN REACH.
--- NOTE | 2019-03-18 13:04 | NUR ---
03/18/19 RD FOLLOW UP COMPLETED PLEASE REFER TO NUTRITION ASSESSMENT UNDER CARE ACTIVITY FOR ESTIMATED NUTRITIONAL NEEDS. 1. CONTINUE JEVITY 1.2 @ 50ML/HR -THIS WILL PROVIDE 1200 ML OF VOLUME, 1440 KCALS, AND 66.6 GM OF PROTEIN WHICH MEETS >75% OF ESTIMATED NUTRIENT NEEDS 2. RECOMMEND FREE WATER FLUSH OF 100ML Q4H 3. RD TO FOLLOW-UP 2-3 DAYS, HIGH RISK FRANCHESKA JHA RD
[2019-03-18 16:00] VITALS: BP 127/66
[2019-03-18] MEDS: HYDROcodone/APAP 5/325 MG 1 TAB TAB PO PRN (16:12)
--- NOTE | 2019-03-18 16:26 | NUR ---
PT IS AWAKE AND IN LABORED BREATHING.FACIAL GRIMACING NOTED. PAIN MEDICATION GIVEN THROUGH G TUBE. CALL LIGHT IN REACH.
[2019-03-18] MEDS: LORazepam 2 MG/ML VIAL IVP PRN (18:36)
--- NOTE | 2019-03-18 18:36 | NUR ---
PT WAS MOANING. PT WAS GIVEN PAIN MEDICATION EARLIER. PT CONTINUES TO BE MOANING. ATIVAN GIVEN TO PATIENT. WILL ENDORSE TO MANAGER ETL NURSE TO MONITOR PT. CALL LIGHT IN REACH.
--- NOTE | 2019-03-18 19:38 | NUR ---
SHIFT REPORT GIVEN TO ROSS FURNACE OPERATOR NURSE. PT IS IN STABLE CONDITION. VITAL SIGNS IN NORMAL LIMITS. CALL LIGHT IN REACH.
--- NOTE | 2019-03-18 19:38 | NUR ---
RECIEVED PT AAOX1 , NID - O2 SAT -WNL , W/ PICC LINE ON R UPPER ARM , ON JEVITY 1.2 RUN 50CC W/ H20 FLUSH 100 Q4 HR. LOW JIMENEZ SCALE , SPASTIC - W/ HX OF CEREBRAL PALSY , W/ IV SITE ON L HAND INTACT AND PATENT . ON SAFETY PRECAUTION PROTOCOL - BED ALARM ON . POC DISCUSSED BUT POOR UNDERSTANDING DUE TO MENTAL STATUS , CALL LIGHT W/ IN REACH - WILL CONT. TO MONITOR.
[2019-03-18 20:00] VITALS: BP 140/79
--- NOTE | 2019-03-18 20:00 | NUR ---
RECEIVED PATIENT ON 2L NASAL CANNULA, PULSE OX SAT 97%. PATIENT PRESENTS WITH COARSE/RHONCHI BREATH SOUNDS AND AUDIBLE UPPER AIRWAY SECRETIONS. SCHEDULED BREATHING TREATMENT ADMINISTERED. TOLERATED TX WELL WITHOUT ADVERSE SIDE EFFECTS. NASOTRACHEALLY SUCTIONED PATIENT WITHOUT INCIDENT. SUCTIONED LARGE AMOUNT OF THICK, YELLOW SECRETIONS. SPUTUM SAMPLE OBTAINED AND SENT TO LAB. ORAL CARE DONE. NO ACUTE RESPIRATORY DISTRESS NOTED AT THIS TIME. WILL CONTINUE TO MONITOR.
--- NOTE | 2019-03-18 22:00 | NUR ---
MADE ROUNDS NO SIGNS OF ACUTE DISTRESS NOTED AT THIS TIME . O2 SAT WNL . WILL CONT. TO MONITOR.
[2019-03-19] VITALS (11 sets, daily range): BP systolic 110–155; BP diastolic 57–79
--- NOTE | 2019-03-19 | NUR ---
MADE ROUNDS , NO SIGNS OF ACUTE DISTRESS NOTED AT THIS TIME . ON GLASS BREAKER - WILL CONT. TO MONITOR.
[2019-03-19] MEDS: IPRATROPIUM 0.02% 0.5 MG/2.5 ML NEBU INH SCH ×4 (01:29→19:20)
--- NOTE | 2019-03-19 01:37 | NUR ---
SCHEDULED BREATHING TREATMENT ADMINISTERED. TOLERATED TX WELL WITHOUT ADVERSE SIDE EFFECTS. NO ACUTE RESPIRATORY DISTRESS NOTED AT THIS TIME. WILL CONTINUE TO MONITOR.
--- NOTE | 2019-03-19 02:00 | NUR ---
SLEEPING - O2 SAT WNL.
[2019-03-19] MEDS: HYDROcodone/APAP 5/325 MG 1 TAB TAB PO PRN ×2 (02:14→10:13)
--- NOTE | 2019-03-19 04:00 | NUR ---
MADE ROUNDS , NO SIGNS OF ACUTE DSITRESS NOTED AT THIS TIME - FULLY WET DIAPER - GOOD U.O V/S WNL.
--- NOTE | 2019-03-19 06:00 | NUR ---
RESTING IN BED , MOANING OCASSIONALLY - WILL CONT. TO MONITOR V/S WNL .
[2019-03-19 06:22] LABS: BASOPHILS % (AUTO) 0.4 % (0.0-2.0); EOSINOPHILS # (AUTO) 0.5 K/uL (0-0.4); EOSINOPHILS % (AUTO) 7.5 % (0.0-4.0); HEMATOCRIT 31.2 % (36-52); HEMOGLOBIN 10.3 g/dL (12.0-18.0); LYMPHOCYTES # (AUTO) 1.3 K/uL (2.0-11.5); LYMPHOCYTES % (AUTO) 18.6 % (20.5-51.1); MEAN CORPUSCULAR HEMOGLOBIN 32 pg (27-31); MEAN CORPUSCULAR HGB CONC 33 g/dL (33-37); MEAN CORPUSCULAR VOLUME 96.7 fL (80-94); MONOCYTES # (AUTO) 0.6 K/uL (0.8-1.0); MONOCYTES % (AUTO) 8.2 % (1.7-9.3); NEUTROPHILS # (AUTO) 4.5 K/uL (1.8-7.7); NEUTROPHILS % (AUTO) 65.3 % (42.2-75.2); PLATELET COUNT (AUTO) 298 K/uL (140-450); RED BLOOD CELL COUNT(AUTO) 3.23 MIL/uL (4.20-6.10); WHITE BLOOD COUNT (AUTO) 6.9 K/uL (4.8-10.8)
[2019-03-19 06:53] LABS: CREATININE 0.5 mg/dL (0.7-1.3)
[2019-03-19 06:57] LABS: ANION GAP 5.1 (8-16); CARBON DIOXIDE 36.3 mmol/L (21-32); POTASSIUM 4.4 mmol/L (3.5-5.1)
--- NOTE | 2019-03-19 07:35 | NUR ---
ENDORSED TO AM SHIFT FOR CONT. OF CARE . PT IS STABLE CONDITION.
--- NOTE | 2019-03-19 07:40 | NUR ---
REPORT RECEIVED FROM STUNT PERFORMER. PT AWAKE, NO S/S OF ACUTE DISTRESS NOTED, GT INFUSING PER ORDER, SAFETY PRECAUTIONS IN PLACE, PERSONAL ITEMS WITHIN EASY REACH. WILL CONTINUE TO MONITOR.
[2019-03-19] MEDS: LACTULOSE 20 GM/30 ML UDC GT SCH (10:12)
[2019-03-19] MEDS: MULTIVITAMIN/MINERALS 1 TAB GT SCH (10:12)
[2019-03-19] MEDS: FAMOTIDINE 20 MG TAB GT SCH (10:13)
[2019-03-19] MEDS: TAMSULOSIN 0.4 MG CAP GT SCH (10:13)
[2019-03-19] MEDS: BENZTROPINE 1 MG TAB GT SCH ×2 (10:13→20:26)
[2019-03-19] MEDS: OSELTAMIVIR PHOSPHATE 75 MG CAP PO SCH (10:13)
[2019-03-19] MEDS: HALOPERIDOL 5 MG TAB GT SCH ×2 (10:14→20:26)
[2019-03-19] MEDS: CALCIUM CARB/VIT-D 500 MG/200 IU 1 TAB GT SCH (10:14)
[2019-03-19] MEDS: MEROPENEM 1,000 MG in NACL 0.9% 100 ML IV SCH ×2 (10:17→20:26)
--- NOTE | 2019-03-19 10:30 | NUR ---
PT REMAINS AWAKE, ABLE TO COMMUNICATE SOME NEEDS, CAREGIVER AT BEDSIDE.NO S/S OF ACUTE DISTRESS NOTED, GT INFUSING PER ORDER, SAFETY PRECAUTIONS IN PLACE, PERSONAL ITEMS WITHIN EASY REACH. WILL CONTINUE TO MONITOR.
[2019-03-19] MEDS: ASCORBIC ACID 500 MG/5 ML ORASYR GT SCH (10:40)
[2019-03-19 10:50] LABS: PROTHROMBIN TIME 10.2 secs (10.8-13.4)
--- NOTE | 2019-03-19 11:00 | NUR ---
GT FEEDING PLACED ON HOLD PER RADIOLOGY IN PREPARATION FOR PROCEDURE.
--- NOTE | 2019-03-19 13:40 | NUR ---
Dr Song at bedside to perform us guided thoracentesis with chest tube placement.
--- NOTE | 2019-03-19 14:03 | NUR ---
PT HAVING STERILE PROCEDURE HHN NOT GIVEN
[2019-03-19] MEDS: LORazepam 2 MG/ML VIAL IVP PRN (14:05)
--- NOTE | 2019-03-19 14:05 | NUR ---
PT APPEARS ANXIOUS ADMINISTERED PRN MEDICATION PER ORDER. SAFETY PRECAUTIONS REMAIN IN PLACE, NURSING AT BEDSIDE PREPARING PT FOR PROCEDURE.
[2019-03-19] MEDS ORDERED: LIDOCAINE 1% 500 MG/50 ML VIAL INJ SCH (14:35)
--- NOTE | 2019-03-19 15:15 | NUR ---
BEDSIDE PROCEDURE COMPLETE, PT SLEEPING APPEARS COMFORTABLE. XRAY CALLED TO COMPLETE CXR. NO S/S OF ACUTE DISTRESS NOTED, SAFETY PRECAUTIONS IN PLACE, PERSONAL ITEMS WITHIN EASY REACH. WILL CONTINUE TO MONITOR.
--- NOTE | 2019-03-19 15:45 | NUR ---
Dr Song completed us guided ct placement and thoracentesis at bedside 1175 ml nilesh liquid withdrawn and delivered to lab. Pleurvac not on unit, notified charge nurse, called ICU and housecleaner floor; equipment will be available tomorrow, charge nurse updated.
--- NOTE | 2019-03-19 16:30 | NUR ---
Dr Cole notified of chest tube placement and suction equiptment unavailable until tomorrow; per thats ok, no new orders, discussed Merrem per pharmary and received order.
--- NOTE | 2019-03-19 18:00 | NUR ---
PT RESTING QUIETLY, TV ON, APPEARS COMFORTABLE. NO S/S OF ACUTE DISTRESS NOTED, SAFETY PRECAUTIONS IN PLACE, PERSONAL ITEMS WITHIN EASY REACH. WILL CONTINUE TO MONITOR.
--- NOTE | 2019-03-19 19:20 | NUR ---
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 LUNG SOUND ALTHOUGH DIMINISHED IN SOME AREAS BUT THE CHEST RISE AND FALL EQUALLY AND O2 SAT IS CONT. ON WNL - ON O2 SAT MONITORING . POC DISCUSSED BUT POOR UNDERSTANDING DUE TO MENTAL STATUS - W/ HX OF CEREBRAL PALSY - ON BED BOUND -SPASTIC QUADRIPLEGIC -ON SAFETY / FALL PRECAUTION PROTOCOL - BED ALARM ON , ON JEVITY 1.2 CONT. FEEDING - SOFT ABD. , INCONTINENT , WITH OLD SCAR OF LEFT BUTT - W/ OPTIFOAM - LOW JIMENEZ SCALE . WILL CONT TO MONITOR.
--- NOTE | 2019-03-19 19:20 | NUR ---
REPORT ENDORSED TO NIGHT NURSE ELMIRA, PT SLEEPING APPEARS COMFORTABLE. NO S/S OF ACUTE DISTRESS NOTED, SAFETY PRECAUTIONS IN PLACE.
--- NOTE | 2019-03-19 19:20 | NUR ---
ENDORSED TO NIGHT NURSE TO FOLLOW UP WITH RT FOR EARLY AM SPUTUM COLLECTION AND TO FOLLOW UP WITH DAY SHIFT TO OBTAIN SUCTION EQUIPMENT FOR CHEST TUBE; AGREEABLE.
--- NOTE | 2019-03-19 19:33 | NUR ---
RECEIVED PATIENT ON 2L NASAL CANNULA, PULSE OX SAT 95%. SCHEDULED BREATHING TREATMENT ADMINISTERED. TOLERATED TX WELL WITHOUT ADVERSE SIDE EFFECTS. NO ACUTE RESPIRATORY DISTRESS NOTED AT THIS TIME. WILL CONTINUE TO MONITOR.
[2019-03-19] MEDS: traMADol 50 MG TAB GT PRN (20:46)
--- NOTE | 2019-03-19 22:00 | NUR ---
MADE ROUNDS -NO SIGNS OF ACUTE DISTRESS NOTED AT THIS TIME . O2 SAT WNL. WILL CONT. TO MONITOR.
[2019-03-19 22:01] LABS: APPEARANCE,SPUN,BODY FLUID CLEAR (CLEAR); APPEARANCE,UNSPUN,BODY FLUID HAZY (CLEAR); COLOR,BODY FLUID YELLOW (LT YELLOW); GLUCOSE,BODY FLUID 88 mg/dL; SPECIMENTYPE,BODY FLUID PLEURAL; TOTAL VOLUME,BODY FLUID 1300 mL
[2019-03-19 22:16] LABS: RBC, BODY FLUID 3105 /cu. mm.; WBC, BODY FLUID 0 /cu. mm.
[2019-03-20] VITALS: BP 116/63
--- NOTE | 2019-03-20 | NUR ---
MADE ROUNDS - SLEEPING CHEST RISE AND FALL EQUALLY. WILL CONT. TO MONITOR.
[2019-03-20] MEDS: IPRATROPIUM 0.02% 0.5 MG/2.5 ML NEBU INH SCH ×4 (01:30→18:37)
--- NOTE | 2019-03-20 01:30 | NUR ---
PATIENT SLEEPING COMFORTABLY AT THIS TIME. BREATHING TREATMENT NOT GIVEN. RN MADE AWARE. NO RESPIRATORY DISTRESS NOTED. WILL CONTINUE TO MONITOR.
--- NOTE | 2019-03-20 02:00 | NUR ---
SLEEPING - CHEST RISE AND FALL EQUALLY - O2 SAT WNL.
[2019-03-20] MEDS: HYDROcodone/APAP 5/325 MG 1 TAB TAB PO PRN ×2 (03:51→21:13)
[2019-03-20 04:00] VITALS: BP 140/86
--- NOTE | 2019-03-20 04:00 | NUR ---
AWAKE , MOANING , CRYING - FLACC 7 - NARCO / GT - JUST GIVEN . WILL CONT. TO MONITOR.
[2019-03-20 05:56] LABS: BASOPHILS % (AUTO) 0.3 % (0.0-2.0); EOSINOPHILS # (AUTO) 0.5 K/uL (0-0.4); EOSINOPHILS % (AUTO) 8.5 % (0.0-4.0); HEMATOCRIT 33.6 % (36-52); LYMPHOCYTES # (AUTO) 0.9 K/uL (2.0-11.5); LYMPHOCYTES % (AUTO) 16.5 % (20.5-51.1); MEAN CORPUSCULAR HEMOGLOBIN 32 pg (27-31); MEAN CORPUSCULAR HGB CONC 33 g/dL (33-37); MEAN CORPUSCULAR VOLUME 96.4 fL (80-94); MONOCYTES # (AUTO) 0.6 K/uL (0.8-1.0); MONOCYTES % (AUTO) 9.9 % (1.7-9.3); NEUTROPHILS # (AUTO) 3.7 K/uL (1.8-7.7); NEUTROPHILS % (AUTO) 64.8 % (42.2-75.2); PLATELET COUNT (AUTO) 323 K/uL (140-450); RED BLOOD CELL COUNT(AUTO) 3.48 MIL/uL (4.20-6.10); RED CELL DISTRIBUTION WIDTH 14.3 % (11.6-13.7); WHITE BLOOD COUNT (AUTO) 5.6 K/uL (4.8-10.8)
--- NOTE | 2019-03-20 06:00 | NUR ---
MADE ROUNDS . NO SIGNS OF ACUTE DISTRESS NOTED AT THIS TIME . O2 SAT WNL.
[2019-03-20 06:07] LABS: CREATININE 0.5 mg/dL (0.7-1.3)
[2019-03-20 06:12] LABS: HEPATITIS A ANTIBODY IGM Negative (Negative); HEPATITIS B SURFACE ANTIBODY Reactive (.); HEPATITIS B SURFACE ANTIGEN Negative (Negative)
[2019-03-20 06:14] LABS: ANION GAP 7.3 (8-16); CARBON DIOXIDE 36.1 mmol/L (21-32); POTASSIUM 4.4 mmol/L (3.5-5.1)
--- NOTE | 2019-03-20 07:30 | NUR ---
ENDORSED PT IS MOANING , CRYING , O2 SAT WNL - V/S WNL.- STABLE CONDITION.
[2019-03-20 08:00] VITALS: BP 176/77
--- NOTE | 2019-03-20 08:14 | NUR ---
RECEIVED REPORT FROM BRAND STRATEGY MANAGER NURSE AT BEDSIDE FOR CONTINUITY OF CARE. PATIENT AAOX1, MOANING BUT PAIN MEDS GIVEN ALREADY. WITH 3L O2 VIA NC, IV ON LEFT HAND 24 SL , PICC LINE TO RIGHT UPPER ARM INFUSING NS AT 5ML/HR. SAFETY AND SEIZURE PRECAUTIONS IN PLACE, CALL LIGHT WITHIN REACH, WILL CONTINUE TO MONITOR PATIENT. BED ON LOW POSITION.
[2019-03-20] MEDS: POLYETHYLENE GLYCOL 17 GM/PKT GT SCH (09:41)
[2019-03-20] MEDS: LACTULOSE 20 GM/30 ML UDC GT SCH (09:42)
[2019-03-20] MEDS: MULTIVITAMIN/MINERALS 1 TAB GT SCH (09:42)
[2019-03-20] MEDS: BENZTROPINE 1 MG TAB GT SCH ×2 (09:42→21:13)
[2019-03-20] MEDS: FAMOTIDINE 20 MG TAB GT SCH (09:42)
[2019-03-20] MEDS: ASCORBIC ACID 500 MG/5 ML ORASYR GT SCH (09:42)
[2019-03-20] MEDS: HALOPERIDOL 5 MG TAB GT SCH ×2 (09:43→21:13)
[2019-03-20] MEDS: CALCIUM CARB/VIT-D 500 MG/200 IU 1 TAB GT SCH (09:43)
[2019-03-20] MEDS: LORazepam 2 MG/ML VIAL IVP PRN ×2 (09:43→13:44)
--- NOTE | 2019-03-20 09:43 | NUR ---
ADMINISTERED MORNING MEDS TO PT. PT TOLERATED WELL. RESIDUALS CHECKED PRIOR TO MED ADMINISTRATION. PT HAS 3ML RESIDUAL. TOLERATING FEEDING WELL. PT SHOWING SIGNS OF AGITATION. ATIVAN ADMINISTERED ALSO FOR PT TO RELAX. ALL OTHER NEEDS MET. WILL CONTINUE TO ROUND FREQUENTLY ON PT.
[2019-03-20] MEDS: MEROPENEM 1,000 MG in NACL 0.9% 100 ML IV SCH ×2 (09:44→21:14)
[2019-03-20] MEDS: TAMSULOSIN 0.4 MG CAP GT SCH (09:44)
--- NOTE | 2019-03-20 11:10 | NUR ---
Dirt Bike Mechanic Note: Per Sowmya Avalos from [facility] , she is in agreement with patient being transferred to any snf or LTAC. She requested to be notified via email with name of facility, [email or web address].
--- NOTE | 2019-03-20 11:22 | NUR ---
ROGER FROM OR HELPED WITH CONNECTING PT TO PNEUMO-VAC. PT ON LOW SUCTION. SUCTION MACHINE WORKING WELL. ALL OTHER NEEDS MET. WILL CONTINUE TO ROUND FREQUENTLY ON PT.
--- NOTE | 2019-03-20 11:24 | NUR ---
PT CONNECTED TO LOW CONTINUOUS SUCTION PER DR. GRIER'S ORDERS. PT TOLERATING WELL.
[2019-03-20 12:00] VITALS: BP 156/89
--- NOTE | 2019-03-20 13:47 | NUR ---
ADMINISTERED ATIVAN DUE TO PT BEING VERY AGITATED. PT BREATHING TREATMENT AND MOVING HIM AROUND MADE HIM UPSET AND PT YELLING. ACCORDING TO [facility] WHERE HE IS FROM, PT YELLS WHEN AGITATED AND DOES NOT WANT TO BE BOTHERED. WILL CONTINUE TO MONITOR PT CLOSELY. BP 152/79 AND HR114. WILL CONTINUE TO ROUND FREQUENTLY ON PT.
[2019-03-20 16:00] VITALS: BP 135/69
--- NOTE | 2019-03-20 19:30 | NUR ---
RECEIVED REPORT FROM DAY SHIFT NURSE AT BEDSIDE FOR CONTINUITY OF CARE. PATIENT AAOX1, MOANING WILL ADMINISTER PAIN MEDS WITH 3L O2 VIA NC, IV ON LEFT HAND 24 SL , PICC LINE TO RIGHT UPPER ARM INFUSING NS AT 5ML/HR. SAFETY AND SEIZURE PRECAUTIONS IN PLACE, CALL LIGHT WITHIN REACH, WILL CONTINUE TO MONITOR PATIENT. BED ON LOW POSITION.
--- NOTE | 2019-03-20 19:51 | NUR ---
ENDORSED PT TO DOUGHNUT GLAZIER FOR CONTINUITY OF CARE. PT IN STABLE CONDITION AT THIS TIME.
[2019-03-20 20:00] VITALS: BP 111/50
--- NOTE | 2019-03-20 21:13 | NUR ---
GIVEN COGENTIN, HALL, MERREM AND NORCO FOR PAIN MD ORDERED. PT TOLERATED WELL.
--- NOTE | 2019-03-20 23:55 | NUR ---
VS CHECKED, WITHIN PT'S BASELINE. WILL CONTINUE TO MONITOR.
--- NOTE | 2019-03-20 23:55 | NUR ---
VS CHECKED, WITHIN PT'S BASELINE, WILL CONTINUE TO MONITOR.
[2019-03-21] VITALS: BP 113/61
[2019-03-21] MEDS: IPRATROPIUM 0.02% 0.5 MG/2.5 ML NEBU INH SCH ×4 (01:00→19:42)
--- NOTE | 2019-03-21 01:32 | NUR ---
PT SLEEPING COMFORTABLY AT THIS TIME. PT GETS AGITATED WHEN WOKEN UP. RN AWARE AT THIS TIME
--- NOTE | 2019-03-21 02:28 | NUR ---
PT SLEEPING IN BED. NO ACUTE DISTRESS NOTED.
[2019-03-21 04:00] VITALS: BP 114/74
--- NOTE | 2019-03-21 04:02 | NUR ---
VS CHECKED, WITHIN PT'S BASELINE. WILL CONTINUE TO MONITOR. BED IN LOW POSITION, CALL LIGHT WITHIN REACH.
[2019-03-21] MEDS: HYDROcodone/APAP 5/325 MG 1 TAB TAB PO PRN ×4 (04:27→20:05)
--- NOTE | 2019-03-21 04:28 | NUR ---
FLACC1 NOTED. GIVEN NORCO MD ORDERED. PT TOLERATED WELL.
--- NOTE | 2019-03-21 05:58 | NUR ---
PT SLEEPING IN BED. NO ACUTE DISTRESS NOTED.
--- NOTE | 2019-03-21 06:56 | NUR ---
PT IN STABLE CONDITION, WILL ENDORSE TO DAY SHIFT NURSE FOR CONTINUOUS CARE.
--- NOTE | 2019-03-21 07:15 | NUR ---
RECEIVED PT FROM FOOD ASSEMBLER KITCHEN NURSE FOR CONTINUITY OF CARE. PT IN STABLE CONDITION. RESPIRATIONS EVEN AND UNLABORED. IV INTACT AND PATENT. SAFETY MEASURES IN PLACE. BED IN LOW POSITION. BED ALARM ON. CALL LIGHT AT BEDSIDE. WILL CONTINUE TO MONITOR.
[2019-03-21 07:21] LABS: BASOPHILS # (AUTO) 0.1 K/uL (0.00-0.22); BASOPHILS % (AUTO) 1.1 % (0.0-2.0); EOSINOPHILS # (AUTO) 0.5 K/uL (0-0.4); EOSINOPHILS % (AUTO) 7.8 % (0.0-4.0); HEMATOCRIT 33.9 % (36-52); HEMOGLOBIN 10.9 g/dL (12.0-18.0); LYMPHOCYTES # (AUTO) 1.4 K/uL (2.0-11.5); LYMPHOCYTES % (AUTO) 23.8 % (20.5-51.1); MEAN CORPUSCULAR HEMOGLOBIN 31 pg (27-31); MEAN CORPUSCULAR HGB CONC 32 g/dL (33-37); MONOCYTES # (AUTO) 0.6 K/uL (0.8-1.0); MONOCYTES % (AUTO) 10.6 % (1.7-9.3); NEUTROPHILS # (AUTO) 3.4 K/uL (1.8-7.7); NEUTROPHILS % (AUTO) 56.7 % (42.2-75.2); PLATELET COUNT (AUTO) 314 K/uL (140-450); RED BLOOD CELL COUNT(AUTO) 3.53 MIL/uL (4.20-6.10); RED CELL DISTRIBUTION WIDTH 13.9 % (11.6-13.7); WHITE BLOOD COUNT (AUTO) 5.9 K/uL (4.8-10.8)
[2019-03-21 08:00] VITALS: BP 105/61
[2019-03-21 08:02] LABS: ANION GAP 7.8 (8-16); CARBON DIOXIDE 36.2 mmol/L (21-32)
[2019-03-21 08:03] LABS: CREATININE 0.5 mg/dL (0.7-1.3)
[2019-03-21] MEDS: ALBUTEROL 0.083% 2.5 MG/3 ML NEBU INH PRN (08:17)
[2019-03-21] MEDS: LACTULOSE 20 GM/30 ML UDC GT SCH (09:30)
[2019-03-21] MEDS: MULTIVITAMIN/MINERALS 1 TAB GT SCH (09:30)
[2019-03-21] MEDS: TAMSULOSIN 0.4 MG CAP GT SCH (09:33)
[2019-03-21] MEDS: HALOPERIDOL 5 MG TAB GT SCH ×2 (09:33→20:06)
[2019-03-21] MEDS: BENZTROPINE 1 MG TAB GT SCH ×2 (09:34→20:06)
[2019-03-21] MEDS: traMADol 50 MG TAB GT PRN (09:34)
[2019-03-21] MEDS: MEROPENEM 1,000 MG in NACL 0.9% 100 ML IV SCH ×2 (09:34→20:05)
[2019-03-21] MEDS: FAMOTIDINE 20 MG TAB GT SCH (09:34)
--- NOTE | 2019-03-21 09:34 | NUR ---
GAVE ORDERED DUE MEDICATIONS AT THIS TIME. PT TOLERATED WELL. RESPIRATIONS EVEN AND UNLABORED. BED IN LOW POSITION. BED ALARM ON. CALL LIGHT AT BEDSIDE. WILL CONTINUE TO MONITOR.
[2019-03-21] MEDS: ASCORBIC ACID 500 MG/5 ML ORASYR GT SCH (09:40)
[2019-03-21] MEDS: CALCIUM CARB/VIT-D 500 MG/200 IU 1 TAB GT SCH (09:41)
--- NOTE | 2019-03-21 11:46 | NUR ---
PT SLEEPING AT THIS TIME. RESPIRATIONS EVEN AND UNLABORED. BED IN LOW POSITION. BED ALARM ON. CALL LIGHT AT BEDSIDE. WILL CONTINUE TO MONITOR.
[2019-03-21 12:00] VITALS: BP 109/69
--- NOTE | 2019-03-21 13:33 | NUR ---
ASSISTED WITH CLEANING PT AFTER URINATION. PT TOLERATED WELL. RESPIRATIONS EVEN AND UNLABORED. BED IN LOW POSITION. BED ALARM ON. CALL LIGHT AT BEDSIDE. WILL CONTINUE TO MONITOR.
--- NOTE | 2019-03-21 14:07 | NUR ---
USING STERILE TECHNIQUE NASOTRACHEAL SUCTION FOR LARGE THIN PALE YELLOW SECRETIONS AIRWAY PATENT TOLERATED PROCEDURE WELL WITHOUT ADVERSE REACTIONS NOTED
--- NOTE | 2019-03-21 15:16 | NUR ---
GAVE PRN PAIN MEDICATION AT THIS TIME. PT TOLERATED WELL. RESPIRATIONS EVEN AND UNLABORED. BED IN LOW POSITION. BED ALARM ON. CALL LIGHT AT BEDSIDE. WILL CONTINUE TO MONITOR.
[2019-03-21 16:00] VITALS: BP 116/76
--- NOTE | 2019-03-21 17:42 | NUR ---
PT SLEEPING AT THIS TIME. RESPIRATIONS EVEN AND UNLABORED. BED IN LOW POSITION. BED ALARM ON. CALL LIGHT AT BEDSIDE. WILL CONTINUE TO MONITOR.
--- NOTE | 2019-03-21 19:29 | NUR ---
GAVE REPORT TO ASSOCIATE PROFESSOR OF COUNSELING NURSE ALEXIS FOR CONTINUITY OF CARE. PT IN STABLE CONDITION.
--- NOTE | 2019-03-21 19:30 | NUR ---
RECEIVED BEDSIDE REPORT FROM DAY SHIFT NURSEALVARO FOR CONTINUITY OF CARE. PATIENT AAOX1, MOANING WILL ADMINISTER PAIN MEDS. PT WITH 3L O2 VIA NC, IV ON LEFT HAND 24 SL , PICC LINE TO RIGHT UPPER ARM INFUSING NS AT 5ML/HR. SAFETY AND SEIZURE PRECAUTIONS IN PLACE, CALL LIGHT WITHIN REACH, WILL CONTINUE TO MONITOR PATIENT. BED ON LOW POSITION.
[2019-03-21 20:00] VITALS: BP 135/81
[2019-03-21 20:05] LABS: HEPATITIS B CORE AB TOTAL POSITIVE (NEGATIVE)
--- NOTE | 2019-03-21 20:05 | NUR ---
GIVEN COGENTIN, HALOPERIDOL, AND MERREM. FLACC1 NOTED, GIVEN NORCO MD ORDERED. PT TOLERATED WELL.
[2019-03-21] MEDS: LORazepam 2 MG/ML VIAL IVP PRN (21:24)
--- NOTE | 2019-03-21 21:24 | NUR ---
PT AGITATING, GIVEN ATIVAN MD ORDERED. PT TOLERATED WELL.
[2019-03-22] VITALS (7 sets, daily range): BP systolic 102–142; BP diastolic 58–82
--- NOTE | 2019-03-22 | NUR ---
VS CHECKED, WITHIN PT'S BASELINE. BED IN LOW POSITION. WILL CONTINUE TO MONITOR.
[2019-03-22] MEDS: IPRATROPIUM 0.02% 0.5 MG/2.5 ML NEBU INH SCH ×4 (01:00→19:52)
--- NOTE | 2019-03-22 01:28 | NUR ---
PATIENT BREATHING TX NOT GIVEN. PATIENT IS ASLEEP. PT GETS AGITATED WHEN AWAKE. WILL CONT TO MONITOR
--- NOTE | 2019-03-22 02:02 | NUR ---
PT SLEEPING COMFORTABLY. NO ACUTE DISTRESS NOTED.
--- NOTE | 2019-03-22 04:00 | NUR ---
VS CHECKED, WITHIN PT'S BASELINE. WILL CONTINUE TO MONITOR.
[2019-03-22] MEDS ORDERED: LORazepam 2 MG/ML VIAL IVP PRN (05:50)
[2019-03-22] MEDS ORDERED: traMADol 50 MG TAB GT PRN (05:50)
[2019-03-22] MEDS ORDERED: HYDROcodone/APAP 5/325 MG 1 TAB TAB GT PRN (05:50)
[2019-03-22 06:04] LABS: BASOPHILS % (AUTO) 0.6 % (0.0-2.0); EOSINOPHILS # (AUTO) 0.3 K/uL (0-0.4); EOSINOPHILS % (AUTO) 5.6 % (0.0-4.0); HEMATOCRIT 33.1 % (36-52); HEMOGLOBIN 10.8 g/dL (12.0-18.0); LYMPHOCYTES # (AUTO) 1.1 K/uL (2.0-11.5); MEAN CORPUSCULAR HEMOGLOBIN 31 pg (27-31); MEAN CORPUSCULAR HGB CONC 33 g/dL (33-37); MONOCYTES # (AUTO) 0.5 K/uL (0.8-1.0); MONOCYTES % (AUTO) 9.7 % (1.7-9.3); NEUTROPHILS # (AUTO) 3.5 K/uL (1.8-7.7); NEUTROPHILS % (AUTO) 64.1 % (42.2-75.2); PLATELET COUNT (AUTO) 329 K/uL (140-450); RED BLOOD CELL COUNT(AUTO) 3.45 MIL/uL (4.20-6.10); RED CELL DISTRIBUTION WIDTH 14.2 % (11.6-13.7); WHITE BLOOD COUNT (AUTO) 5.4 K/uL (4.8-10.8)
--- NOTE | 2019-03-22 06:09 | NUR ---
PT AGITATING, GIVEN ATIVAN MD ORDERED. PT TOLERATED WELL.
[2019-03-22 06:32] LABS: ALBUMIN 1.7 g/dL (3.4-5.0); ANION GAP 7.4 (8-16); CARBON DIOXIDE 36.7 mmol/L (21-32); CREATININE 0.5 mg/dL (0.7-1.3); POTASSIUM 4.1 mmol/L (3.5-5.1); TOTAL BILIRUBIN 0.2 mg/dL (0.0-1.0)
--- NOTE | 2019-03-22 07:10 | NUR ---
RECEIVE REPORT FROM NIGHT NURSE, PT IS STABLE, RESPIRATIONS ARE EVEN AND UNLABORED ON 2L NC, CHEST TUBE IN PLACE, FEEDING TUBE RUNNING AT 50 ML/H, SAFETY MEASURES IN PLACE, UPDATE WHITE BOARD AND INTRODUCE SELF, WILL CONTINUE TO MONITOR
--- NOTE | 2019-03-22 10:00 | NUR ---
GAVE PT HIS ORDERED MEDICATION, EDUCATION GIVEN, NO RESIDUAL NOTED IN G-TUBE, PT IS STABLE, NO SIGNS OF DISTRESS NOTED.
[2019-03-22] MEDS: MEROPENEM 1,000 MG in NACL 0.9% 100 ML IV SCH (10:04)
[2019-03-22] MEDS: BENZTROPINE 1 MG TAB GT SCH (10:09)
[2019-03-22] MEDS: MULTIVITAMIN/MINERALS 1 TAB GT SCH (10:09)
[2019-03-22] MEDS: TAMSULOSIN 0.4 MG CAP GT SCH (10:09)
[2019-03-22] MEDS: HALOPERIDOL 5 MG TAB GT SCH (10:10)
[2019-03-22] MEDS: CALCIUM CARB/VIT-D 500 MG/200 IU 1 TAB GT SCH (10:10)
[2019-03-22] MEDS: FAMOTIDINE 20 MG TAB GT SCH (10:10)
[2019-03-22] MEDS: LACTULOSE 20 GM/30 ML UDC GT SCH (10:11)
[2019-03-22] MEDS: POLYETHYLENE GLYCOL 17 GM/PKT GT SCH (10:12)
[2019-03-22] MEDS: ASCORBIC ACID 500 MG/5 ML ORASYR GT SCH (10:26)
--- NOTE | 2019-03-22 12:00 | NUR ---
PT RESTING IN BED, PT WILL CRY OUT AT TIMES, ASKED PT IS HE IS IN PAIN, HE SAID NOT, PT STATES HE WANTS TO GET UP, INFORMED PT HE IS IN HOSPITAL AND WHEELCHAIR IS NOT HERE, PT QUIET DOWN, PT IS STABLE
--- NOTE | 2019-03-22 16:07 | NUR ---
PT RESTING IN BED, PT IS ASLEEP, RESPIRATION ARE EVEN AND UNLABORED ON 2L NC, PT IS STABLE,
[2019-03-22] MEDS ORDERED: MER1I IV (17:55)
--- NOTE | 2019-03-22 18:00 | NUR ---
PT RESTING IN BED, NO SIGNS OF DISTRESS NOTED. WILL ENDORSED TO NIGHT NURSE FOR CONTINUITY OF CARE.
--- NOTE | 2019-03-22 18:30 | NUR ---
GAVE REPORT TO [facility] FOR PT TRANSFER, NOTIFIED [facility] OF PT MOVED TO [place].
--- NOTE | 2019-03-22 19:30 | NUR ---
RECEIVED BEDSIDE REPORT FROM AM SHIFT RN FOR PT'S CONTINUITY OF CARE. PT WILL BE DISCHARGED TO [facility], REPORT GIVEN BY SARITHA 9AM SHIFT RN) TO THE RECEIVING RN. PT GOING TO ROOM 401F. PT IS AAOX0, ON 2L O2 VIA NC, HAS RIGHT UA PICC, AND LEFT HAND 22G, HAS CHEST TUBE IN PLACE, FLACC - 0. SAFETY MEASURES IN PLACE. WILL PREPARE PT FOR DISCHARGE.
--- NOTE | 2019-03-22 20:00 | NUR ---
RECEIVED PT ON 2L NC WITH SP02 OF 96% AND A COARSE BREATH SOUNDS. NO RESPIRATORY DISTRESS NOTED AT THIS TIME; HR 92, RR 18. HHN TX GIVEN ORDERED WITH NO ADVERSE REACTION. WILL CONTINUE TO MONITOR PT
--- NOTE | 2019-03-22 20:37 | NUR ---
PT OFF THE UNIT. DISCHARGED WITH [facility]ERSON[facility] TO [facility] IN [place]. D/C PHOTOGRAPH TAKEN AND DC PROTOCOL FOLLOWED. PT'S VS FF: T 98.8 BP 135/82, P 108, RR 20, 96% ON O2 2L NC. PT IN STABLE CONDITION. [facility] RNFEDE, RECEIVING THE PT MADE AWARE.
--- NOTE | 2019-03-23 17:39 | NUR ---
Live In Housekeeper Nanny Note: I informed Sowmya Avalos from [facility] [email or web address] patient was discharged to [facility] per her request. I emailed her and left a message for her.
== END 2019-03-22 20:37 | DRG 177 ==
LOC: MED 10:35 → MTU 13:46
PROVIDERS: ADMIT Preventive Medicine Preventive Medicine/Occupational Environmental Medicine; ATTEND Preventive Medicine Preventive Medicine/Occupational Environmental Medicine
PROC: 02HV33Z Insertion of Infusion Device into Superior Vena Cava, Percutaneous Approach (ICD-10-PCS; principal; 2019-03-15)
PROC: B548ZZA Ultrasonography of Superior Vena Cava, Guidance (ICD-10-PCS; 2019-03-15)
PROC: 0W993ZZ Drainage of Right Pleural Cavity, Percutaneous Approach (ICD-10-PCS; 2019-03-21)
DX: J69.0 Pneumonitis due to inhalation of food and vomit (principal); J96.20 Acute and chronic respiratory failure, unspecified whether with hypoxia or hypercapnia; G80.0 Spastic quadriplegic cerebral palsy; J90 Pleural effusion, not elsewhere classified; F72 Severe intellectual disabilities; D64.9 Anemia, unspecified; E83.52 Hypercalcemia; E88.09 Other disorders of plasma-protein metabolism, not elsewhere classified; G40.909 Epilepsy, unspecified, not intractable, without status epilepticus; M19.90 Unspecified osteoarthritis, unspecified site; M81.0 Age-related osteoporosis without current pathological fracture; R13.10 Dysphagia, unspecified; Z87.442 Personal history of urinary calculi; Z88.2 Allergy status to sulfonamides; Z90.49 Acquired absence of other specified parts of digestive tract; Z93.1 Gastrostomy status; Z88.6 Allergy status to analgesic agent; Z88.5 Allergy status to narcotic agent; Z88.8 Allergy status to other drugs, medicaments and biological substances; R16.1 Splenomegaly, not elsewhere classified; R73.9 Hyperglycemia, unspecified
CPT/HCPCS: 36415; 36600; 71045; 71250; 76604; 76700; 80048; 80053; 80076; 82803; 82945; 83880; 84157; 85025; 85610; 85651; 85730; 86140; 86704; 86706; 86708; 86709; 86803; 87040; 87070; 87081; 87205; 87340; 87804; 89051; 89220; 94640; 99285; C1751; J1630; J2001; J2060; J2185; J3370; J7030; J7060; J7613; J7644; Q0092